=== PATIENT | male | born 1950 | race Caucasian/White ===

== ENCOUNTER 2022-08-13 12:04 | Outpatient (CLI) | payer MEDICARE ==
[~2022-08-13] VITALS: Ht 180.3 cm; Wt 138.2 kg
[2022-08-13] MEDS ORDERED: DIGO0.12 PO (16:39)
[2022-08-13] MEDS ORDERED: TIZA4CAP8 PO (16:39)
[2022-08-13] MEDS ORDERED: ASPI-999 PO (16:39)
[2022-08-13] MEDS ORDERED: MTP100TCR PO (16:39)
[2022-08-13] MEDS ORDERED: GBPN600T PO ×2 (16:39)
[2022-08-13] MEDS ORDERED: PREDNISOLONE ACETATE 1% OU (16:39)
[2022-08-13] MEDS ORDERED: ALLO300T2 PO ×2 (16:39)
[2022-08-13] MEDS ORDERED: TRAM50TA3 PO (16:39)
[2022-08-13] MEDS ORDERED: BUME2TAB7 PO (16:39)
[2022-08-13] MEDS ORDERED: INSU100C3 SQ (16:39)
[2022-08-13] MEDS ORDERED: TMSL.4C PO (16:39)
[2022-08-13] MEDS ORDERED: UMEC62.5 IH (16:39)
[2022-08-13] MEDS ORDERED: METO50TA7 PO (16:39)
[2022-08-13] MEDS ORDERED: ATOR40TA70 PO (16:39)
[2022-08-13] MEDS ORDERED: ENOX100D4 SQ (16:39)
[2022-08-13] MEDS ORDERED: APIX2.5T PO (16:39)
[2022-08-13] MEDS ORDERED: POTA-169 PO (16:39)
[2022-08-13] MEDS ORDERED: BUDE10.2 IH (16:39)
[2022-08-13] MEDS ORDERED: FOLI1TAB33 PO (16:39)
[2022-08-13] MEDS ORDERED: ENOX30DI4 SQ (16:39)
[2022-08-13] MEDS ORDERED: PRD20T PO (16:39)
[2022-08-13] MEDS ORDERED: INSU100V5 SQ (16:39)
[2022-08-13] MEDS ORDERED: LEVO25CA4 PO (16:39)
== END 2022-08-13 17:19 | disposition home or self-care (01) ==
LOC: PREOP 12:04
PROVIDERS: ATTEND Surgery
DX: Z01.818 Encounter for other preprocedural examination (principal); L98.9 Disorder of the skin and subcutaneous tissue, unspecified

== ENCOUNTER 2022-12-24 06:43 | Day surgery (SDC) | payer MEDICARE ==
[2022-12-24] VITALS (10 sets, daily range): BP systolic 103–131; BP diastolic 79–95
[~2022-12-24] VITALS: Wt 138.2 kg
[~2022-12-24 06:43] MED LIST: ALLO300T2 PO; APIX2.5T PO; ASPI-999 PO; ATOR40TA70 PO; BUDE10.2 IH; BUME2TAB7 PO; DIGO0.12 PO; ENOX100D4 SQ; ENOX30DI4 SQ; FOLI1TAB33 PO; GBPN600T PO; INSU100C3 SQ; INSU100V5 SQ; LEVO25CA4 PO; METO50TA7 PO; MTP100TCR PO; POTA-169 PO; PRD20T PO; PREDNISOLONE ACETATE 1% OU; TIZA4CAP8 PO; TMSL.4C PO; TRAM50TA3 PO; UMEC62.5 IH
[2022-12-24 07:33] LABS: BASOPHILS % (AUTO) 0 % (0-10); HEMOGLOBIN 10.8 g/dL (13.3-17.7)
[2022-12-24 07:35] LABS: ABSOLUTE RETIC # 156 10e9/uL (24-90); EOSINOPHILS # (AUTO) 0.1 10^3/uL (0.0-0.3); EOSINOPHILS % (AUTO) 1 % (0-10); HEMATOCRIT 32 % (40-54); LYMPHOCYTES # (AUTO) 0.9 10^3/uL (1.0-4.0); LYMPHOCYTES % (AUTO) 8 % (12-44); MEAN CORPUSCULAR HEMOGLOBIN 41 pg (25-34); MEAN CORPUSCULAR HGB CONC 34 g/dL (32-36); MEAN CORPUSCULAR VOLUME 120 fL (80-99); MEAN PLATELET VOLUME 10.3 fL (9.0-12.2); MONOCYTES # (AUTO) 0.5 10^3/uL (0.0-1.0); MONOCYTES % (AUTO) 4 % (0-12); NEUTROPHILS % (AUTO) 82 % (42-75); RETICULOCYTE % 5.87 % (0.50-2.40)
[2022-12-24 07:43] LABS: PLATELET COUNT 80 10^3/uL (130-400)
[2022-12-24 07:47] LABS: INR 1.1 (0.8-1.4); PROTHROMBIN TIME PATIENT 14.2 SEC (12.2-14.7)
[2022-12-24] MEDS ORDERED: NS IV 1000 ML 1,000 ML IV STA (07:50)
[2022-12-24] MEDS ORDERED: MIDAZOLAM 2 MG/2 ML (VERSED) VIAL IVP ONE (08:00)
[2022-12-24] MEDS ORDERED: fentaNYL INJECTION 100 MCG/2 ML VIAL IVP ONE (08:00)
[2022-12-24] MEDS ORDERED: LIDOCAINE 1% INJ 10 ML VIAL INJ ONE (08:00)
[2022-12-24 09:01] LABS: ANISOCYTOSIS MODERATE; BAND NEUTROPHILS 0 %; BASOPHILS % (MANUAL) 0 %; EOSINOPHILS % (MANUAL) 1 %; LYMPHOCYTES % (MANUAL) 9 %; MONOCYTES % (MANUAL) 3 %; NEUTROPHILS % (MANUAL) 87 %; NUCLEATED RED BLOOD CELLS 2; POLYCHROMASIA MODERATE
--- NOTE | 2022-12-24 10:14 | Pre-Op Note & Conscious Sedat ---
Pre-Operative Progress Note Date of Available H&P: Dec 24, 2022 Date H&P Reviewed: Dec 24, 2022 Time H&P Reviewed: 08:00 Pre-Op Diagnosis: anemia Moderate Sedation PreProcedure Time 08:00 ASA Score 2 Airway Lungs Heart ASA score ASA 1: a normal healthy patient ASA 2: a patient with a mild systemic disease (mid diabetes, controlled hypertension, obesity ASA 3: a patient with a severe systemic disease that limits activity (angina, COPD, prior Myocardial infarction) ASA 4: a patient with an incapacitating disease that is a constant threat to life (CHF, renal failure) ASA 5: a moribund patient not expected to survive 24 hrs. (ruptured aneurysm) ASA 6: a declared brain- patient whose organs are being harvested. For emergent operations, add the letter E after the classification Mallampati Classification Grade 2 Sedation Plan Analgesia, Amnesia, Plan communicated to team members, Discussed options with patient/fam, Discussed risks with patient/fam The patient is an appropriate candidate to undergo the planned procedure, sedation, and anesthesia. The patient immediately re-assessed prior to indication. RAYMOND SCHWAB MD Dec 24, 2022 10:14
--- NOTE | 2022-12-24 11:17 | Diagnostic Imaging Report ---
INDICATION: Anemia. Patient presents for CT-guided bone marrow aspiration biopsy. Patient brought to the CT suite placed on table in the prone position. Axial imaging through the pelvis was performed to evaluate appropriate entry site. Low back was prepped and draped in usual sterile fashion. Small amount 1% lidocaine was utilized for local anesthesia. The procedure was performed utilizing conscious sedation with radiology nursing and constant patient monitoring. Patient was given a total of 1 mg of Versed intravenously and 50 mcg of fentanyl intravenously. Total procedure time was approximately 13 minutes. The bone marrow needle was advanced and placed with its tip along the posterior cortex right iliac bone. Needle was advanced through the cortex utilizing a bone marrow drill. 2 bone marrow aspirates were then obtained. Next, bone marrow utilized to obtain a bone marrow core sample. Needle was removed and hemostasis was obtained. Patient tolerated the procedure well and left the department in stable condition. IMPRESSION: Successful CT-guided bone marrow aspiration and core biopsy, utilizing conscious sedation. Pathology results are currently pending. Dictated by: Dictated on workstation # [id number]
== END 2022-12-24 11:48 | disposition home or self-care (01) ==
LOC: RAD 06:43
PROVIDERS: ATTEND Internal Medicine
DX: D53.9 Nutritional anemia, unspecified (principal); D69.6 Thrombocytopenia, unspecified; K75.81 Nonalcoholic steatohepatitis (NASH); I48.91 Unspecified atrial fibrillation; Z95.4 Presence of other heart-valve replacement; Z87.891 Personal history of nicotine dependence; Z79.01 Long term (current) use of anticoagulants; Z28.310 Unvaccinated for COVID-19
CPT/HCPCS: 36415; 38222; 77012; 85007; 85027; 85045; 85610; 85730; 99156